=== PATIENT | female | born 1970 | race Caucasian/White ===

== ENCOUNTER 2017-03-08 10:53 | Emergency (ER) | payer MEDICAID ==
[2017-03-08 12:23] LABS: BASOPHIL % 0.4 % (0-2); PLATELET COUNT 357 x10^3mcL (130-400)
[2017-03-08 12:33] LABS: RED CELL DISTRIBUTION WIDTH 16.3 % (11.5-14.5)
[2017-03-08 12:39] LABS: CALCIUM 8.7 mg/dL (8.5-10.1); CARBON DIOXIDE 26.5 mmol/L (21-32); CHLORIDE SERUM 107 mmol/L (98-107); CREATININE SERUM 0.8 mg/dL (0.6-1.0); GFR1 > 60 mL/min; GLUCOSE SERUM 142 mg/dL (74-106); SODIUM SERUM 143 mmol/L (136-145)
[2017-03-08 12:44] LABS: ALKALINE PHOSPHATASE 80 U/L (46-116); ALT/SGPT 26 U/L (14-59); AST/SGOT 21 U/L (15-37); BILIRUBIN TOTAL 0.18 mg/dL (0.20-1.00); C REACTIVE PROTEIN 3.9 mg/dL (<=0.9); TOTAL PROTEIN, SERUM 7.8 g/dL (6.4-8.2); TRIGLYCERIDES 118 mg/dL (<150)
[2017-03-08 12:45] LABS: ALBUMIN 3.2 g/dL (3.4-5.0); CHOLESTEROL 120 mg/dL (<200); HDL CHOLESTEROL 30 mg/dL (40-60)
[2017-03-08 12:51] LABS: FREE T4 0.93 ng/dL (0.76-1.46); FREE THYROXINE INDEX 1.9 ug/dL (1.4-4.5); T4(THYROXINE) 5.7 ug/dL (4.7-13.3)
[2017-03-08 13:17] LABS: ERYTHROCYTE SED RATE 40 mm/hr (0-20)
[2017-03-08 14:16] VITALS: BP 147/63
[2017-03-09 14:44] LABS: T3 TOTAL 1.17 ng/mL
== END 2017-03-08 14:16 | disposition home or self-care (01) ==
LOC: ED 10:53
PROVIDERS: Specialist
DX: L98.9 Disorder of the skin and subcutaneous tissue, unspecified (principal)
CPT/HCPCS: 36415; 83880; 84439